=== PATIENT | female | born 1990 | race Caucasian/White ===

== ENCOUNTER 2022-12-26 16:46 | Emergency (ER) | payer MEDICAID ==
[2022-12-26 17:08] VITALS: BP 117/89; PULSE 77
[2022-12-26 18:39] LABS: CORONAVIRUS COVID-19 NAA NEGATIVE (NEGATIVE)
== END 2022-12-26 20:43 | disposition home or self-care (01) ==
LOC: JD.ED 16:46
DX: R06.02 Shortness of breath (principal); R00.2 Palpitations; E66.9 Obesity, unspecified; Z68.32 Body mass index [BMI] 32.0-32.9, adult; Z20.822 Contact with and (suspected) exposure to COVID-19
CPT/HCPCS: 0240U; 36415; 71046; 80053; 84484; 85025; 85379; 93005; 93246; 99285